=== PATIENT | female | born 1970 | race American Indian/Alaskan Native ===

== ENCOUNTER 2024-07-20 17:55 | Emergency (ER) | payer BC ==
[~2024-07-20] VITALS: Ht 167.6 cm; Wt 81.6 kg
[2024-07-20] MEDS ORDERED: TRAMADOL HCL 50 MG TABLET PO STA ×2 (20:05→20:59)
== END 2024-07-20 21:12 | disposition home or self-care (01) ==
LOC: ER 18:31
DX: S52.591A Other fractures of lower end of right radius, initial encounter for closed fracture (principal); Z88.0 Allergy status to penicillin; W18.31XA Fall on same level due to stepping on an object, initial encounter; Y93.89 Activity, other specified; Y92.488 Other paved roadways as the place of occurrence of the external cause